=== PATIENT | male | born 1970 | race Caucasian/White ===

== ENCOUNTER 2018-05-03 21:30 | Emergency (ER) | payer OTHER ==
[~2018-05-03] VITALS: Ht 172.7 cm; Wt 90.7 kg
--- NOTE | ~2018-05-03 | EKG ---
[place], [place] ELECTROCARDIOGRAM REPORT NAME: SCARLETT GUTIERRES UNIT #: [id number] ROOM: DOCTOR: EPIPHANY DRAFT REPORT BIRTHDATE: [birth year] [facility] Test Date: 2018-05-03 Test Time: 21:35:50 Pat Name: SCARLETT GUTIERRES Department: Room: Gender: [employer]: : 1970 Requested By: JESICA OCHOA Order Number: [id number] Reading MD: Noble Higuera MD Measurements Intervals [place] Rate: 103 P: 52 [place]: 146 QRS: 44 QRSD: 95 T: 80 QT: 359 QTc: 470 Interpretive Statements Sinus tachycardia Left atrial enlargement Left ventricular hypertrophy Electronically Signed On 05-04-2018 7:04:09 PDT by Noble Higuera MD CM:EKGRPT:ELECTROCARDIOGRAM REPORT [id number] JESICA OCHOA MD EPIPHANY DRAFT REPORT JESICA OCHOA MD
--- NOTE | ~2018-05-03 | EKG ---
[place], [place] ELECTROCARDIOGRAM REPORT NAME: SCARLETT GUTIERRES UNIT #: [id number] ROOM: DOCTOR: EPIPHANY DRAFT REPORT BIRTHDATE: [birth year] [facility] Test Date: 2018-05-04 Test Time: 00:23:33 Pat Name: SCARLETT GUTIERRES Department: ER Room: 4 Gender: M Second Operator: Marylou Batres : 1970 Requested By: JESICA OCHOA Order Number: [id number] Reading MD: Noble Higuera MD Measurements Intervals [place] Rate: 77 P: 23 [place]: 162 QRS: 14 QRSD: 92 T: 50 QT: 374 QTc: 424 Interpretive Statements Sinus rhythm Left atrial enlargement Borderline T wave abnormalities Electronically Signed On 05-04-2018 7:04:17 PDT by Noble Higuera MD CM:EKGRPT:ELECTROCARDIOGRAM REPORT [id number] JESICA OCHOA MD EPIPHANY DRAFT REPORT JESICA OCHOA MD
[~2018-05-03 21:30] MED LIST: LEVOTHYROXIN0.025 M1 PO; PRILOSEC20 M1 PO; TRAMADOL HCL50 MG PO
[2018-05-03 21:53] LABS: BASO % 0.6 % (0.0-1.0); EOS # 0.1 10*3/uL (0.0-0.4); EOS % 1.7 % (1.0-4.0); HEMATOCRIT 43.5 % (42.0-52.0); HEMOGLOBIN 14.8 g/dl (14.0-18.0); LYMPH # 2.3 10*3/uL (1.3-4.4); LYMPH % 35.7 % (27.0-41.0); MEAN CELL VOLUME 90.2 fl (80.0-94.0); MEAN CORPUSCULAR HGB 30.7 pg (27.0-31.0); MEAN PLATELET VOLUME 11.3 fl (9.6-12.3); MONO # 0.4 10*3/uL (0.1-1.0); MONO % 6.4 % (3.0-9.0); NEUT # 3.5 10*3/uL (2.3-7.9); NEUT % 55.3 % (47.0-73.0); PLATELET COUNT AUTOMATED 229 10*3/uL (130-400); RED BLOOD COUNT 4.82 10*6/uL (4.50-5.90); RED CELL DISTRI WIDTH 13.1 % (0-14.5); WHITE BLOOD COUNT 6.4 10*3/uL (4.8-10.8)
[2018-05-03 22:27] LABS: ACT PARTIAL THROMBO TIME 21.8 SECONDS (20.8-31.5)
[2018-05-03 23:32] LABS: ALBUMIN 3.9 gm/dl (3.1-4.5); ALKALINE PHOSPHATASE 64 U/L (45-117); BUN 17 mg/dl (7-24); CHLORIDE 105 mmol/L (98-107); CREATININE 1.12 mg/dL (0.70-1.30); POTASSIUM 3.8 mmol/L (3.5-5.1); SGOT/AST 23 IU/L (3-35); SGPT/ALT 38 U/L (12-78); SODIUM 140 mmol/L (136-145)
[2018-05-03 23:38] LABS: TROPONIN I < 0.015 ng/ml (<0.045)
[2018-05-04] MEDS ORDERED: ATARAX,VISTARIL50 MG PO (02:47)
[2018-05-04] MEDS ORDERED: ZOFRAN4 MG PO (02:47)
== END 2018-05-04 02:50 | disposition home or self-care (01) ==
LOC: ED 21:30
PROVIDERS: Emergency Medicine Emergency Medical Services
DX: K52.9 Noninfective gastroenteritis and colitis, unspecified (principal); B34.9 Viral infection, unspecified; Z79.899 Other long term (current) drug therapy

== ENCOUNTER → 2018-05-07 | Outpatient (CLI) | payer OTHER ==
[~2018-05-07] MED LIST changes: +ATARAX,VISTARIL50 MG PO; +ZOFRAN4 MG PO
== END | disposition home or self-care (01) ==
LOC: CARD 05-02 15:00
DX: Z95.2 Presence of prosthetic heart valve (principal)

== ENCOUNTER 2022-04-05 08:30 | Emergency (ER) | payer OTHER ==
[~2022-04-05] VITALS: Wt 95.3 kg
[2022-04-05 09:32] LABS: BASO % 0.4 % (0.0-1.0); EOS # 0.1 10*3/uL (0.0-0.4); EOS % 1.5 % (1.0-4.0); HEMATOCRIT 37.1 % (42.0-52.0); LYMPH # 2.8 10*3/uL (1.3-4.4); LYMPH % 34.6 % (27.0-41.0); MEAN CELL VOLUME 92.3 fl (80.0-94.0); MEAN CORPUSCULAR HGB 31.6 pg (27.0-31.0); MEAN CORPUSCULAR HGB CONC 34.2 g/dl (33.0-37.0); MEAN PLATELET VOLUME 10.9 fl (9.6-12.3); MONO # 0.6 10*3/uL (0.1-1.0); MONO % 6.7 % (3.0-9.0); NEUT # 4.6 10*3/uL (2.3-7.9); NEUT % 56.6 % (47.0-73.0); PLATELET COUNT AUTOMATED 201 10*3/uL (130-400); RED BLOOD COUNT 4.02 10*6/uL (4.50-5.90); RED CELL DISTRI WIDTH 13.2 % (0-14.5); WHITE BLOOD COUNT 8.2 10*3/uL (4.8-10.8)
[2022-04-05 09:47] LABS: ALKALINE PHOSPHATASE 57 U/L (46-116); BUN 10 mg/dl (9-23); CHLORIDE 103 mmol/L (98-107); POTASSIUM 4.1 mmol/L (3.4-5.1); SGPT/ALT 18 U/L (10-49); TOTAL PROTEIN 7.1 gm/dL (6.0-8.0)
[2022-04-05] MEDS ORDERED: LASIX20 MG PO (14:10)
[2022-04-05] MEDS ORDERED: K-TAB10 MEQ PO (14:10)
== END 2022-04-05 16:03 | disposition home or self-care (01) ==
LOC: ED 08:30
PROVIDERS: Internal Medicine
DX: R09.89 Other specified symptoms and signs involving the circulatory and respiratory systems (principal); J81.1 Chronic pulmonary edema; Z98.890 Other specified postprocedural states

== ENCOUNTER → 2022-07-24 | Outpatient (CLI) | payer OTHER ==
[~2022-07-24] MED LIST changes: +K-TAB10 MEQ PO; +LASIX20 MG PO
== END | disposition home or self-care (01) ==
LOC: RAD 17:07
PROVIDERS: ATTEND Internal Medicine
DX: M19.042 Primary osteoarthritis, left hand (principal); M19.041 Primary osteoarthritis, right hand

== ENCOUNTER → 2022-08-10 | Outpatient (CLI) | payer OTHER | END | disposition home or self-care (01) | LOC: RAD 12:20 | PROVIDERS: ATTEND Nurse Practitioner Family | DX: M47.817 Spondylosis without myelopathy or radiculopathy, lumbosacral region (principal) ==

== ENCOUNTER → 2022-08-17 | Outpatient (CLI) | payer OTHER | END | disposition home or self-care (01) | LOC: RAD 13:07 | PROVIDERS: ATTEND Internal Medicine | DX: M16.11 Unilateral primary osteoarthritis, right hip (principal); M25.752 Osteophyte, left hip ==

== ENCOUNTER → 2023-08-02 | Outpatient (CLI) | payer OTHER | END | disposition home or self-care (01) | LOC: RAD 14:40 | PROVIDERS: ATTEND Physician Assistant | DX: M16.0 Bilateral primary osteoarthritis of hip (principal) ==

== ENCOUNTER → 2023-10-02 | Outpatient (CLI) | payer OTHER ==
[2023-10-02 14:53] LABS: BUN 7 mg/dl (9-23)
== END | disposition home or self-care (01) ==
LOC: LAB 14:10
PROVIDERS: ATTEND Physician Assistant Medical
DX: R07.9 Chest pain, unspecified (principal); R06.00 Dyspnea, unspecified

== ENCOUNTER → 2024-07-24 | Outpatient (CLI) | payer OTHER | END | disposition home or self-care (01) | LOC: RAD 11:28 | PROVIDERS: ATTEND Chiropractor Orthopedic | DX: M50.31 Other cervical disc degeneration, high cervical region (principal); M25.78 Osteophyte, vertebrae; M99.01 Segmental and somatic dysfunction of cervical region; M99.02 Segmental and somatic dysfunction of thoracic region ==

== ENCOUNTER → 2024-12-08 | Outpatient (CLI) | payer OTHER | END | disposition home or self-care (01) | LOC: RAD 15:38 | PROVIDERS: ATTEND Physician Assistant | DX: M47.814 Spondylosis without myelopathy or radiculopathy, thoracic region (principal); M25.519 Pain in unspecified shoulder; M54.6 Pain in thoracic spine; M54.9 Dorsalgia, unspecified; G62.9 Polyneuropathy, unspecified ==